=== PATIENT | male | born 1985 | race Two or more races ===

== ENCOUNTER 2018-05-13 00:05 | Emergency (ER) | payer OTHER ==
[~2018-05-13] VITALS: Ht 177.8 cm; Wt 74.8 kg
[2018-05-13] MEDS ORDERED: PROTECT PLUS S1 EACH PO (04:24)
== END 2018-05-13 14:46 | disposition home or self-care (01) ==
LOC: ER 00:05
DX: K11.20 Sialoadenitis, unspecified (principal); B27.90 Infectious mononucleosis, unspecified without complication